=== PATIENT | female | born 1990 | race Caucasian/White ===

== ENCOUNTER 2018-05-08 11:00 | Day surgery (SDC) | payer BC ==
[2018-05-07 13:08] LABS: HEMATOCRIT 39.1 % (36.0-48.0); HEMOGLOBIN 13.4 g/dL (12-16); MCH 31.4 pg (26.0-34.0); MCHC 34.3 g/dL (31.0-37.0); MCV 91.6 fL (80.0-100.0); MEAN PLATELET VOLUME 9.6 fL (7.4-10.4); RBC 4.27 10x6/uL (4.00-5.40); RDW 12.6 % (11.5-14.5); WBC 7.8 10x3/uL (4.8-10.8)
[~2018-05-08] VITALS: Ht 177.8 cm; Wt 84.4 kg
--- NOTE | ~2018-05-08 | OP ---
PATIENT NAME: GYALE CLARK MEDICAL RECORD: [id number] :88 LOCATION:D.OPS ADMISSION DATE: SURGEON: MONET BAUGH MD DATE OF OPERATION: 05/08/2018 PREOPERATIVE DIAGNOSES: 1. SLAP lesion of the right shoulder. 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 POSTOPERATIVE DIAGNOSES: 1. SLAP lesion with spinoglenoid notch tumor. 2. 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 PROCEDURES: 1. Arthroscopic SLAP repair. 2. Arthroscopic debridement of spinoglenoid cyst. 3. Open excision of large solid mass of the proximal humerus region at the distal bicipital groove. SURGEON: Monet Baugh MD ANESTHESIA: General. INTRAOPERATIVE COMPLICATIONS: None. INTRAOPERATIVE FINDINGS: The patient was found to not have a fluid-filled cyst. It is interesting that the cyst was not shown on the MRI present, and at the time of surgery, it was very concerning for a malignant-type tumor. OPERATIVE SUMMARY IN DETAIL: After obtaining the appropriate preoperative orthopedic surgery consent as well as anesthetic consultation, evaluation, and clearance, the patient was brought to the operating room and placed on the operating table in the supine position. After general laryngeal mask was administered, the patient was placed in a left lateral decubitus position. All pressure points were well padded to include down leg peroneal pad as well as axillary roll. The patient was held firmly to the operating table using the vacuum pack suction system. Right upper extremity and shoulder were then prepped and draped in routine sterile fashion. The arm was held in the Arthrex traction boom in 30 degrees of forward degrees, 30 degrees of abduction, and 10 pounds of traction laterally. Arthroscopy was established in the glenohumeral joint from posterior portal. Anterior portal was established in anterior safe interval. Diagnostic arthroscopy did show the patient had an anterior-inferior bicipital labral tear. At this point, tertiary portal was created, Corina through this construct, the patient's labrum and labral neck were debrided. Care was taken to dissect down to the anterior aspect of the neck to evacuate the spinoglenoid cyst tumor. Substantial amounts of fluid were evacuated. At this point, the anterior-inferior aspect of the glenoid was prepared for reapproximation. Using the Arthrex percutaneous kit and the Arthrex labral repair kit along with 2.9 PushLocks, good repair of the anterior-inferior anchor at anterior-inferior labrum was achieved. Having completed this, attention was turned to the cyst on the anterior medial aspect of the proximal humerus. Careful incision was made and taken down. Immediately, upon palpation of the tumor, it was found to be solid and OPERATIVE REPORT [id number] GAYLE CLARK nonconnected with the patient's joint in anyway as it seemed. At this point, the irrigant was switched from normal saline to sterile water. Careful dissection was carried out. The incision had already been made to the point that I felt like it was beyond incisional biopsy. Careful dissections medially and laterally as well as distally inferior were carried down using sterile water the entire way. Dissection was carried down underneath the base of this. A very firm and hard nodular tumor was finally removed in bulk. Again, further sterile water was removed. The biceps tendon was identified and still in continuity. This was then taken to back table and basically dissected in half and was shown to be a hard tumor. Concern at this point was obviously for malignancy. All the incisions were closed in the usual fashion. The tumor was sent for pathology. An immediate conversation was held with pathology regarding this tumor. Sterile dressings were applied. The patient was awakened and taken to recovery room in stable condition. All final needle and sponge counts were correct. TRANSINT:[id number] Voice Confirmation ID: [id number] DOCUMENT ID: [id number] AMAURI TRIPP, MONET WOODS at 1101 CC: [id number] DICTATION DATE: 05/29/18 1410 COMPUTER TERMINAL OPERATOR: 05/29/18 1452 [facility] 05/08/18 [place] [id number] [place] [id number]
[~2018-05-08 11:00] MED LIST: CETIRIZINE HCL5 MG PO; HYDROCODONE-APA1 TAB PO; NEURONTIN 300300 MG PO
[2018-05-08] MEDS ORDERED: ASTEPRO30 M1 NASAL (12:57)
[2018-05-08] MEDS ORDERED: CLARITIN 10 MG10 MG PO (12:58)
[2018-05-08] MEDS ORDERED: FLUTICASONE PRO16 GM NASAL (12:58)
[2018-05-08] MEDS ORDERED: BANOPHEN25 M1 PO (13:00)
[2018-05-08] MEDS ORDERED: PROAIR HFA8.5 GM INH (13:01)
[2018-05-08 13:23] VITALS: BP 121/78; Ht 177.8 cm; Wt 84.4 kg
[2018-05-08 13:43] LABS: HCG URINE NEGATIVE (NEGATIVE)
[2018-05-08] MEDS ORDERED: DILAUDID2 MG PO (17:24)
== END 2018-05-08 19:40 | disposition home or self-care (01) ==
LOC: D.OPS 11:00 → D.PAN 13:35 → D.OPS 13:50
PROVIDERS: Anesthesiology; Orthopaedic Surgery
DX: S43.431A Superior glenoid labrum lesion of right shoulder, initial encounter (principal); M25.811 Other specified joint disorders, right shoulder; M71.311 Other bursal cyst, right shoulder; Z01.812 Encounter for preprocedural laboratory examination; X58.XXXA Exposure to other specified factors, initial encounter

== ENCOUNTER → 2018-06-17 12:57 | Outpatient (CLI) | payer BC ==
[2018-05-08 13:23] VITALS: BMI 26.7
[~2018-06-17 12:57] MED LIST changes: +ASTEPRO30 M1 NASAL; +BANOPHEN25 M1 PO; +CLARITIN 10 MG10 MG PO; +DILAUDID2 MG PO; +FLUTICASONE PRO16 GM NASAL; +PROAIR HFA8.5 GM INH
== END | disposition home or self-care (01) ==
LOC: D.MRI 12:57
DX: M61.11 Myositis ossificans progressiva, shoulder (principal)

== ENCOUNTER 2020-03-17 10:05 | Emergency (ER) | payer BC ==
[~2020-03-17] VITALS: Ht 177.8 cm; Wt 82.3 kg
[2020-03-17 10:14] VITALS: Ht 177.8 cm; Wt 82.3 kg
[2020-03-17] MEDS ORDERED: SINGULAIR10 MG PO (10:16)
[2020-03-17 11:18] LABS: ANION GAP 11.5 mmol/L (8-16); CARBON DIOXIDE 27.4 mmol/L (21.0-32.0); CREATININE - SERUM 1.1 mg/dL (0.6-1.3); POTASSIUM - SERUM 3.9 mmol/L (3.5-5.1)
[2020-03-17 11:20] LABS: HEMATOCRIT 41.2 % (36.0-48.0); HEMOGLOBIN 13.9 g/dL (12-16); LYMPHOCYTES 21.8 % (15-50); MCH 30.2 pg (26.0-34.0); MCHC 33.7 g/dL (31.0-37.0); MCV 89.6 fL (80.0-100.0); MEAN PLATELET VOLUME 9.8 fL (7.4-10.4); NEUTROPHILS 67.5 % (40-80); PLATELET COUNT 272 10x3/uL (130-400); RDW 12.1 % (11.5-14.5); WBC 6.5 10x3/uL (4.8-10.8)
[2020-03-17 11:21] LABS: HCG URINE NEGATIVE (NEGATIVE)
[2020-03-17 11:27] LABS: ALBUMIN 4.2 g/dL (3.4-5.0); BILIRUBIN - TOTAL 1.04 mg/dL (0.2-1.3); PROTEIN - SERUM 8.4 g/dL (6.4-8.2)
[2020-03-17 11:43] LABS: BACTERIA MODERATE /hpf (NEGATIVE); BILIRUBIN NEGATIVE (NEGATIVE); GLUCOSE NEGATIVE (NEGATIVE); KETONE NEGATIVE (NEGATIVE); NITRITE NEGATIVE (NEGATIVE); RED CELLS - URINE 0-5 /hpf (0-5); UROBILINOGEN NORMAL (NORMAL)
[2020-03-17] MEDS ORDERED: PREVACID30 MG PO (12:26)
[2020-03-17 13:18] VITALS: BP 118/72
== END 2020-03-17 13:19 | disposition home or self-care (01) ==
LOC: D.ER 10:05
PROVIDERS: Emergency Medicine
DX: K27.9 Peptic ulcer, site unspecified, unspecified as acute or chronic, without hemorrhage or perforation (principal); J45.909 Unspecified asthma, uncomplicated; K21.9 Gastro-esophageal reflux disease without esophagitis; R11.2 Nausea with vomiting, unspecified; R10.10 Upper abdominal pain, unspecified